=== PATIENT | male | born 1940 | race Caucasian/White ===

== ENCOUNTER 2018-05-18 10:22 | Day surgery (SDC) | payer OTHER ==
--- NOTE | 2018-05-18 11:58 | PDHPUP ---
History & Physical Update H&P update statement: This history and physical update is based on an assessment of the patient which was completed after admission or registration (within 24 hours), but prior to the surgery/procedure. H&P update: H&P reviewed & patient examined, no change in patient's condition since H&P completed (Reviewed office note 05/09/[address] Heaton)
--- NOTE | 2018-05-18 12:06 | PDANEPAE ---
ANE History of Present Illness 77 year old male for CHARISSE. ANE Past Medical History - Cardiovascular History Hx Hypertension: Yes Hx Arrhythmias: No - Pulmonary History Hx Oxygen in Use at Home: No Hx Sleep Apnea: No ANE Review of Systems Review of systems is: negative Review of Systems: ANE Patient History - Allergies Allergies/Adverse Reactions: amiodarone Allergy (Severe, Verified 08/15/12 10:07) TOXIC TO LUNGS ramipril [From Altace] Allergy (Intermediate, Verified 08/15/12 10:08) DRY COUGH cephalexin [Cephalexin] Allergy (Verified 08/13/13 11:31) cephalexin monohydrate [From Keflex] Allergy (Verified 08/13/13 11:31) - Home Medications Home Medications: Furosemide [Lasix 40 MG (RX)] 40 mg PO DAILY 08/14/12 [Last Taken 05/17/18 08:00 ] Losartan Potassium [Cozaar] 100 mg PO HS 08/14/12 [Last Taken 05/17/18 20:00] Metoprolol Tartrate [Lopressor 25 mg (RX)] 12.5 mg PO BID 08/14/12 [Last Taken 05/18/18 08:00] Multivitamins [Multivitamin (OTC)] 1 each PO DAILY 08/14/12 [Last Taken 08:00] Potassium Cl [Klor-Con 10 meq (RX)] 10 meq PO DAILY 08/14/12 [Last Taken 08:00] Simvastatin [Zocor 20 mg (RX)] 20 mg PO HS 08/14/12 [Last Taken 05/17/18 20:00] Warfarin Sodium [Coumadin 5MG (*)] 5 mg PO DAILY@05/16/18 [Last Taken 08:00] prednisoLONE ACET 1% [Pred Forte 1% (*)] 1 drops EACHEYE DAILY 05/16/18 [Last Taken 05/18/18 08:00] - Smoking Hx Smoking Status: Never smoked ANE Physical Exam - Airway Neck exam: FROM Mallampati Score: Class 2 Mouth exam: normal dental/mouth exam - Pulmonary Pulmonary: no respiratory distress - Cardiovascular Cardiovascular: regular rate and rhythym - ASA Status ASA Status: III ANE Anesthesia Plan Anesthesia Plan: MAC
[2018-05-18] MEDS ORDERED: ALBUTEROL 3 ML DEYVIAL IH PRN (12:07)
[2018-05-18] MEDS ORDERED: fentaNYL 100 MCG/2 ML INJ IVP PRN (12:07)
[2018-05-18] MEDS ORDERED: ACETAMINOPHEN 500 MG TAB PO PRN (12:07)
[2018-05-18] MEDS ORDERED: NALOXONE HCL 0.4 MG/ML INJ IVP PRN (12:07)
--- NOTE | 2018-05-18 12:44 | POSTANESTH ---
Post Anesthetic Evaluation Cardiovascular Status: Normal, Stable Respiratory Status: Normal, Stable Level of Consciousness/Mental Status: Mildly Sleepy, Arousable, Moderately Sleepy Pain Control: Adequate, Prn Tx Ordered Nausea/Vomiting Control: Adequate, Prn Tx Ordered Complications Possibly Related to Anesthesia: None Noted
--- NOTE | 2018-05-18 17:03 | ECHO ---
[email or web address] [address] [address] Main: [phone] Fax: Transesophageal Echocardiography Name: ELENA MCELROY MR#: [id number] Study Date: 05/18/2018 Study Time: 12:15 PM Date of : 1940 Age: 77 year(s) Height: ( ) Weight: ( ) BSA: Gender: Male Examination: CHARISSE Indication: Eval ALIDA, MR, AI Image Quality: Adequate Contrast: Requested by: Aiyana Lechuga Heart Rate: Rhythm: BP: / Procedure Staff Insecticide Mixer: Karine Holder HUYEN Reading Physician: Aiyana Lechuga MD Requesting Provider: CHARISSE Exam Details Conclusions: Normal size left ventricle. Normal global systolic LV function. An agitated saline study was performed and was negative for intracardiac shunting. The left atrial appendage is unilobular. Good color flow doppler in the left atrial appendage. No thrombus in left appendage. Mild to moderate mitral regurgitation. 38%. 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 Mild tricuspid regurgitation is present. Measurements: Chambers Valvular Assessment AV/MV Valvular Assessment TV/PV Normal Normal Normal Name Value Range Name Value Range Name Value Range LVOTd 2.0 cm 2.0 cm mm AR (PHT): 287 ms ( - ) Additional Measurements: Valvular Assessment AV/MV Name Value MR ERO: 0.240 cm2 MR PISA radius: 6 mm Patient: ELENA MCELROY Study Date: 05/18/2018 Page 1 of 2 12:15 PM MR Reg. Volume: 33 ml AR Vmax: 2.04 cm/s Findings: Left Ventricle: Normal size left ventricle. Normal global systolic LV function. No regional wall motion abnormality. Right Ventricle: Normal size right ventricle. Normal RV function. Left Atrium: An agitated saline study was performed and was negative for intracardiac shunting. Left Atrial Appendage: The left atrial appendage is unilobular. Good color flow doppler in the left atrial appendage. No thrombus in left appendage. Mitral Valve: The mitral valve is normal in appearance and function. Mild to moderate mitral regurgitation. No Regurgitant fraction is 38%. 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 Tricuspid Valve: The tricuspid valve is normal in appearance and function. Mild tricuspid regurgitation is present. Pulmonic Valve: The pulmonic valve is normal in appearance and function. l1n (No Signature Object) Patient: ELENA MCELROY Study Date: 05/18/2018 Page 2 of 2 12:15 PM [id number]
== END 2018-05-18 14:01 | disposition home or self-care (01) ==
LOC: FCATH 10:22
PROVIDERS: ATTEND Internal Medicine Cardiovascular Disease
PROC: B246ZZ4 Ultrasonography of Right and Left Heart, Transesophageal (ICD-10-PCS; principal; 2018-05-18)
DX: I35.9 Nonrheumatic aortic valve disorder, unspecified (principal); I25.10 Atherosclerotic heart disease of native coronary artery without angina pectoris

== ENCOUNTER → 2018-11-22 | Outpatient (CLI) | payer OTHER | LOC: BHFA 10:00 | PROVIDERS: ATTEND Internal Medicine Cardiovascular Disease | DX: R06.02 Shortness of breath (principal); R60.9 Edema, unspecified; I35.9 Nonrheumatic aortic valve disorder, unspecified; E78.00 Pure hypercholesterolemia, unspecified; I10 Essential (primary) hypertension ==

== ENCOUNTER 2018-12-05 09:50 | Day surgery (SDC) | payer OTHER ==
--- NOTE | 2018-12-01 13:51 | GHP ---
[f rep st] PREOP HISTORY AND PHYSICAL DATE OF ADMISSION: 12/05/2018 CHIEF COMPLAINT: Umbilical hernia. HISTORY OF PRESENT ILLNESS: This is a 78-year-old male who presents with a painful umbilical hernia, which has been present for some time. It is worse with increased activity. It does not fully reduc e, but he denies any GI symptoms. He denies a history of abdominal surgery. Of note, this patient i s status post TAVR procedure with much improved heart function. PAST MEDICAL HISTORY: AFib, aortic valve dysfunction, asthma, arthrosclerosis, BPH, cataract, coloni c polyps, heart disease, high blood pressure, history of stroke, superficial phlebitis, history of th rombocytopenia. PAST SURGICAL HISTORY: Multiple orthopedic surgeries, coronary artery bypass surgery, eye surgery, i nguinal hernia repair, prostatectomy. MEDICATIONS: Amlodipine 5 mg, Benefiber, Coumadin 5 mg, Klor-Con 10 mEq, Lasix 40 mg, losartan 100 m g, metoprolol tartrate 25 mg, multivitamin, simvastatin 20 mg. ALLERGIES: Ramipril, Keflex, amiodarone, Altace. FAMILY MEDICAL HISTORY: Noncontributory. SOCIAL HISTORY: This patient is a former smoker. He drinks 1 alcohol beverage per day, he denies a history of recreational drug use. REVIEW OF SYSTEMS: Ten-point review of systems is negative, aside from what is in the HPI. PHYSICAL EXAM: GENERAL: Well-appearing elderly male in no acute distress. HEENT: Normocephalic, a traumatic. No gross hearing deficits. Mucous membranes are moist, PERRLA. CARDIAC: Regular rate a nd rhythm. CHEST: Clear to auscultation bilaterally. No increased work of breathing. ABDOMEN: So ft, nontender, without masses. There is a nonreducible umbilical hernia present. No inguinal hernia s appreciated. EXTREMITIES: Moves all extremities equally x4. NEURO: Alert and oriented x3. PSYC HIATRIC: Appropriate mood and affect. IMPRESSION AND PLAN: This is a 78-year-old male with a significant cardiac history who presents with a painful umbilical hernia repair that is nonreducible. He has received cardiac clearance from Dr. Veras. He will need to be bridged off his Coumadin with Lovenox. We discussed all risks and option s. Risks of surgery include, but are not limited to infection, bleeding, recurrence, damage to surro unding structures including spermatic cord, bowel, and bladder; heart attack and . Patient unde rstands and wishes to proceed. We will proceed with open umbilical hernia repair. /[id number]/MODL
--- NOTE | 2018-12-05 07:56 | PDHPUP ---
History & Physical Update H&P update statement: This history and physical update is based on an assessment of the patient which was completed after admission or registration (within 24 hours), but prior to the surgery/procedure. H&P update: H&P reviewed & patient examined, no change in patient's condition since H&P completed
[~2018-12-05 09:50] MED LIST: VANCOMYCIN 1.25 GM in NS 250 ML IV ONE; VANCOMYCIN PHARMACY TO DOSE MISC ONE
[2018-12-05] MEDS ORDERED: LR 1,000 ML IV ONE (10:04)
[2018-12-05] MEDS ORDERED: BUPIVACAINE 0.5% 30 ML SDV ONE (10:28)
[2018-12-05 11:04] LABS: PLATELET COUNT 98 10^3/uL (150-400)
[2018-12-05 11:04] LABS: INR 1.09 (0.83-1.16); PROTIME(PATIENT) 14.3 SEC (12.0-15.0)
--- NOTE | 2018-12-05 11:25 | PDANEPAE ---
ANE Past Medical History - Cardiovascular History Hx Hypertension: Yes Hx Arrhythmias: Yes Hx Chest Pain: No Hx Coronary Artery / Peripheral Vascular Disease: Yes Hx CHF / Valvular Disease: Yes Hx Palpitations: Yes Cardiovascular History Comment: a-fib. wide open AI. mild . 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 - Neurologic History Hx Cerebrovascular Accident: No Hx Seizures: No Hx Dementia: No Neurologic History Comment: Hx TIA's - Endocrine History Hx Diabetes: No Hypothyroid: No Hyperthyroid: No Obesity: no Endocrine History Comment: dyslipidemia - Renal History Hx Renal Disorders: No - Liver History Hx Hepatic Disorders: No - Neurological & Psychiatric Hx Hx Neurological and Psychiatric Disorders: No - Cancer History Hx Cancer: Yes Cancer History Comment: skin - Congenital Disorder History Hx Congenital Disorders: No - GI History GERD: no Hx Gastrointestinal Disorders: No - Other Health History Other Health History: spot to bottom lip. partial upper. bruises easily - Chronic Pain History Chronic Pain: Yes (severe stenosis lower back) ANE Review of Systems Review of Systems: - Exercise capacity Exercise capacity: >=4 METS METS (RN): 4 METS ANE Patient History - Allergies Allergies/Adverse Reactions: amiodarone Allergy (Severe, Verified 11/30/18 13:34) TOXIC TO LUNGS ramipril [From Altace] Allergy (Intermediate, Verified 11/30/18 13:34) DRY COUGH amlodipine Allergy (Verified 12/05/18 10:21) feet and lower leg swelling cephalexin [Cephalexin] Allergy (Verified 11/30/18 13:34) cephalexin monohydrate [From Keflex] Allergy (Verified 11/30/18 13:34) - Home Medications Home Medications: Furosemide [Lasix 40 MG (*)] 08/14/12 [Last Taken 12/04/18 12:00] Losartan Potassium [Cozaar] HS 08/14/12 [Last Taken 12/04/18] Metoprolol Tartrate [Lopressor 25 mg (*)] 08/14/12 [Last Taken 12/05/18] Multivitamins [Multivitamin (*)] 08/14/12 [Last Taken 05/17/18 08:00] Potassium Cl [Klor-Con 10 meq (RX)] 08/14/12 [Last Taken 12/04/18] Simvastatin [Zocor 20 mg] 08/14/12 [Last Taken 12/04/18] Warfarin Sodium [Coumadin 5MG (*)] 05/16/18 [Last Taken 11/30/18] prednisoLONE ACET 1% [Pred Forte 1% (*)] 05/16/18 [Last Taken 05/18/18 08:00] - NPO status NPO Since - Liquids (Date): 12/05/18 NPO Since - Liquids (Time): 08:30 NPO Since - Solids (Date): 12/04/18 NPO Since - Solids (Time): 23:55 - Anes Hx Anes Hx: no prior problems - Smoking Hx Smoking Status: Never smoked Marijuana use: No - Alcohol Use Alcohol Use: Occasionally - Family Anes Hx Family Anes Hx: neg - N/A Family Hx Anesthesia Complications: none ANE Labs/Vital Signs - Labs Result Diagrams: 12/05/18 10:50 - Vital Signs Blood Pressure: 136/91 Heart Rate: 57 Respiratory Rate: 16 O2 Sat (%): 95 Height: 182.88 cm Weight: 88.451 kg ANE Physical Exam - Airway Neck exam: FROM Mallampati Score: Class 2 Mouth exam: normal dental/mouth exam - Pulmonary Pulmonary: no respiratory distress, no rales or rhonchi, clear to auscultation - Cardiovascular Cardiovascular: regular rate and rhythym, systolic murmur - ASA Status ASA Status: III ANE Anesthesia Plan Anesthesia Plan: general endotracheal anesthesia Total IV Anesthesia: No
[2018-12-05] MEDS ORDERED: PROPOFOL 200 MG/20 ML VIAL ONE (12:16)
[2018-12-05] MEDS ORDERED: fentaNYL 100 MCG/2 ML INJ ONE ×2 (12:16→13:21)
[2018-12-05] MEDS ORDERED: KETOROLAC 30 MG/1 ML SDV ONE (12:17)
[2018-12-05] MEDS ORDERED: ROCURONIUM 50 MG/5 ML VIAL ONE (12:17)
[2018-12-05] MEDS ORDERED: LIDOCAINE 2% 5 ML SDV ONE (12:17)
[2018-12-05] MEDS ORDERED: DEXAMETHASONE 4 MG/ML VIAL ONE (12:17)
[2018-12-05] MEDS ORDERED: ONDANSETRON 4 MG/2 ML VIAL ONE (12:17)
--- NOTE | 2018-12-05 12:27 | POSTOPPROG ---
Post Op Note Date of Operation: 12/05/18 Surgeon: Apoorva Rodriguez Police Chief: Apoorva Rodriguez Anesthesiologist: Aj Singh Anesthesia: GET(General Endotracheal) Pre-op Diagnosis: incarerated umbilical hernia Post-op Diagnosis: same Procedure: open umbilical hernia repair c mesh Findings: fatty contents, no bowel; 1.5 cm defect Inf/Abcess present in the surg proc area at time of surgery?: No EBL: Minimal Complications: none
[2018-12-05] MEDS ORDERED: ePHEDrine SULFATE 25 MG/5 ML SYR ONE (12:41)
[2018-12-05] MEDS ORDERED: SUGAMMADEX SODIUM 200 MG/2 ML VIAL IVP ONE (12:51)
[2018-12-05] MEDS ORDERED: ACETAMINOPHEN 500 MG TAB PO PRN (12:52)
[2018-12-05] MEDS ORDERED: LR 500 ML IV PRN (12:52)
[2018-12-05] MEDS ORDERED: NALOXONE HCL 0.4 MG/ML INJ IVP PRN (12:52)
[2018-12-05] MEDS ORDERED: ONDANSETRON 4 MG/2 ML VIAL IVP PRN (12:52)
[2018-12-05] MEDS ORDERED: PROMETHAZINE HCL 25 MG/ML INJ IVP PRN (12:52)
[2018-12-05] MEDS ORDERED: HYDROCODONE/APAP 5/325 TAB PO PRN (12:52)
[2018-12-05] MEDS ORDERED: fentaNYL 100 MCG/2 ML INJ IVP PRN (12:52)
[2018-12-05] MEDS ORDERED: PHENYLEPHRINE HCL 100 MCG/ML SYR IVP PRN (12:52)
[2018-12-05] MEDS ORDERED: oxyCODONE IR 5 MG TAB PO PRN (12:52)
[2018-12-05] MEDS ORDERED: oxyCODONE IR 5 MG TAB ONE (14:04)
--- NOTE | 2018-12-05 14:05 | POSTANESTH ---
Post Anesthetic Evaluation Cardiovascular Status: Similar to Pre-Op Cond Respiratory Status: Similar to Pre-op Cond. Level of Consciousness/Mental Status: Can Participate in Eval Pain Control: Adequate, Prn Tx Ordered Nausea/Vomiting Control: Adequate, Prn Tx Ordered Complications Possibly Related to Anesthesia: None Noted
[2018-12-05 14:40] VITALS: BP 116/73
--- NOTE | 2018-12-06 13:11 | GOP ---
[f rep st] OPERATIVE REPORT DATE OF OPERATION: SURGEON: Law Beasley MD [employer] MECHANIC: Apoorva Rodriguez PA-C. ANESTHESIOLOGIST: Dr. Singh. PREOPERATIVE DIAGNOSIS: Incarcerated umbilical hernia. POSTOPERATIVE DIAGNOSIS: Incarcerated umbilical hernia. PROCEDURE PERFORMED: Open repair of incarcerated umbilical hernia with mesh. FINDINGS: Patient was found to have a 2 cm umbilical defect with some incarcerated omental tissue. DESCRIPTION OF PROCEDURE: The patient was taken to the operating room where he received satisfactory general endotracheal anesthesia by Dr. Singh, placed in the supine position, prepped and drape d in the usual sterile fashion. An infraumbilical incision was made and carried down to the fascia. Hemostasis was obtained. The he rnia sac was dissected free from the skin of the umbilicus in the surrounding subcutaneous tissue. T he sac was opened at the fascial level, and the incarcerated omentum was freed up, partially reduced and partially amputated along with the hernia sac. Hemostasis was assured. The defect was then clos ed by placing a Bard polypropylene mesh in a subfascial position. It was anchored in the periphery w ith interrupted 0 Surgilon mattress sutures, and then the defect was closed transversely with interru pted 0 Surgilon [id number] sutures. He tolerated the procedure well. The wound was infiltrated with 0.5% Marcaine. Blood loss was negligible. The subcu was closed with 3-0 Vicryl, the skin with a 4-0 Monocryl subcuticular stitch. The wound was dressed. He was taken to the recovery room in go od condition, no complications. /[id number]/MODL
== END 2018-12-05 14:56 | disposition home or self-care (01) ==
LOC: FSGY 09:50
PROVIDERS: ATTEND Surgery
PROC: 0WQF0ZZ Repair Abdominal Wall, Open Approach (ICD-10-PCS; principal; 2018-12-05 11:15)
DX: K42.0 Umbilical hernia with obstruction, without gangrene (principal); I48.91 Unspecified atrial fibrillation; I10 Essential (primary) hypertension; E78.00 Pure hypercholesterolemia, unspecified; Z79.01 Long term (current) use of anticoagulants; Z86.010 Personal history of colon polyps; Z95.1 Presence of aortocoronary bypass graft
CPT/HCPCS: C1781; J1100; J1885; J2405; J2704; J3010; J3370

== ENCOUNTER → 2019-02-20 | Outpatient (CLI) | payer OTHER | LOC: GIMAGING 10:42 | PROVIDERS: ATTEND Family Medicine | DX: M54.2 Cervicalgia (principal) | CPT/HCPCS: 72050-PO ==